=== PATIENT | male | born 1985 | race Caucasian/White ===

== ENCOUNTER 2018-08-27 18:50 | Inpatient (IN) | payer SELFPAY ==
[~2018-08-27] VITALS: Ht 175.3 cm; Wt 104.3 kg
[~2018-08-27 18:50] MED LIST: GABA-533 PO; LEVE250T55 PO; RISP2 PO
[2018-08-27] MEDS ORDERED: ONDANSETRON HCL 4 MG/2 ML VIAL IVP ONE (19:30)
[2018-08-27] MEDS ORDERED: MORPHINE SULFATE 4 MG/ML SYRINGE IVP ONE (19:30)
[2018-08-27] MEDS ORDERED: SODIUM CHLORIDE 0.9% 1,000 ML IV ONE (19:30)
[2018-08-27 19:43] LABS: BASOPHILS % (AUTO) 0.8 % (0.0-2.0); EOSINOPHILS % (AUTO) 0.9 % (1.0-6.0); HEMATOCRIT 46.1 % (41-53); HEMOGLOBIN 16.1 g/dL (13.5-17.5); LYMPHOCYTES # (AUTO) 1.3 K/uL (1.0-4.8); LYMPHOCYTES % (AUTO) 11.6 % (22.0-44.0); MEAN CORPUSCULAR HEMOGLOBIN 30.5 pg (26.0-34.0); MEAN CORPUSCULAR HGB CONC 34.9 G/dL (31.0-37.0); MEAN CORPUSCULAR VOLUME 87 fL (80-100); MONOCYTES # (AUTO) 0.8 K/uL (0.1-1.0); MONOCYTES % (AUTO) 7.7 % (2.0-9.0); NEUTROPHILS # (AUTO) 8.6 K/uL (1.8-7.7); PLATELET COUNT (AUTO) 372 K/uL (150-450); RED BLOOD CELL COUNT(AUTO) 5.29 MIL/uL (4.50-5.90); RED CELL DISTRIBUTION WIDTH 13.5 % (11.5-14.5)
[2018-08-27 19:54] LABS: ANION GAP 8 mmol/L (8-16); CALCIUM, TOTAL 8.6 mg/dL (8.8-10.5); CARBON DIOXIDE 29 mmol/L (22-29); CHLORIDE 103 mmol/L (98-107); CREATININE 1.05 mg/dL (0.60-1.30); GLOMERULAR FILTR. RATE CALC > 60 mL/min (>60); GLUCOSE,RANDOM 96 mg/dL (70-110); SODIUM SERUM 140 mmol/L (136-145); UREA NITROGEN, BLOOD 10 mg/dL (7-18)
[2018-08-27 19:57] LABS: D-DIMER 0.27 mg/L FEU (0.00-0.50)
[2018-08-27] MEDS ORDERED: LORazepam 2 MG/ML VIAL IVP ONE (20:00)
[2018-08-27 20:11] LABS: B-TYPE NATRIURETIC PEPTIDE 6 pg/mL (0-100)
[2018-08-27 20:18] LABS: ALANINE AMINOTRANSFERASE 184 U/L (12-78); ALBUMIN 4.1 g/dL (3.4-5.0); ALKALINE PHOSPHATASE 94 U/L (46-116); ASPARTATE AMINOTRANSFERASE 101 U/L (15-37); BILIRUBIN,TOTAL 0.6 mg/dL (0.1-1.0); CREATINE KINASE, TOTAL ONLY 566 U/L (39-308); TOTAL PROTEIN, SERUM 7.9 g/dL (6.4-8.2)
[2018-08-27] MEDS ORDERED: LORazepam 2 MG TABLET PO ONE (21:00)
[2018-08-27 21:40] LABS: APPEARANCE,URINE CLEAR (CLEAR); BILIRUBIN,URINE NEGATIVE (NEGATIVE); GLUCOSE, URINE (UA) NEGATIVE (NEGATIVE); KETONES,URINE NEGATIVE (NEGATIVE); LEUKOCYTE ESTERASE ,URINE NEGATIVE (NEGATIVE); NITRATE,URINE NEGATIVE (NEGATIVE); OCCULT BLOOD,URINE NEGATIVE (NEGATIVE); PROTEIN,URINE NEGATIVE (NEGATIVE); UROBILINOGEN,URINE 0.2 mg/dL (<=1.0)
[2018-08-27 21:50] LABS: AMPHET/METH SCREEN,URINE NEGATIVE (NEGATIVE); BARBITURATE SCREEN, URINE NEGATIVE (NEGATIVE); BENZODIAZEPINES SCREEN,URINE NEGATIVE (NEGATIVE); CANNABINOID SCREEN,URINE POSITIVE (NEGATIVE); COCAINE SCREEN,URINE NEGATIVE (NEGATIVE); METHADONE SCREEN, URINE NEGATIVE (NEGATIVE); OPIATE SCREEN,URINE POSITIVE (NEGATIVE); PHENCYCLIDINE SCREEN,URINE NEGATIVE (NEGATIVE)
[2018-08-28] MEDS ORDERED: ZOLPIDEM TARTRATE 10 MG TABLET PO PRN (01:00)
[2018-08-28] MEDS ORDERED: HALOPERIDOL 5 MG TABLET PO PRN (01:00)
[2018-08-28] MEDS ORDERED: ONDANSETRON HCL 4 MG TABLET PO PRN (06:45)
[2018-08-28] MEDS ORDERED: GuaiFENesin/D-METHORPHAN [SUGAR-FREE] 200-20MG/10 ML SYRUP UDCUP PO PRN (06:45)
[2018-08-28] MEDS ORDERED: PETROLATUM,WHITE 71 GM JELLY TP PRN (06:45)
[2018-08-28] MEDS ORDERED: MAG HYDROX/AL HYDROX/SIMETH ES 30 ML SUSPENSION UDCUP PO PRN (06:45)
[2018-08-28] MEDS ORDERED: NICOTINE 14 MG/24 HOUR PATCH TD PRN (06:45)
[2018-08-28] MEDS ORDERED: CloNIDine HCL 0.1 MG TABLET PO PRN (06:45)
[2018-08-28] MEDS ORDERED: IBUPROFEN 400 MG TABLET PO PRN (06:45)
[2018-08-28] MEDS ORDERED: MAGNESIUM HYDROXIDE SUSPENSION 30 ML UDCUP PO PRN (06:45)
[2018-08-28] MEDS ORDERED: ALBUTEROL SULFATE HFA 90 MCG/PUFF 8 GM INHALER IH PRN (06:45)
[2018-08-28] MEDS ORDERED: LOPERAMIDE HCL 2 MG CAPSULE PO PRN (06:45)
[2018-08-28] MEDS ORDERED: DOCUSATE SODIUM 100 MG CAPSULE PO PRN (06:45)
[2018-08-28] MEDS: GABAPENTIN 400 MG CAPSULE PO SCH ×3 (09:14→18:00)
[2018-08-28] MEDS: LevETIRAcetam 250 MG TABLET PO SCH ×2 (09:15→18:00)
[2018-08-28] MEDS: ARIPiprazole 5 MG TABLET PO SCH (13:15)
[2018-08-28 18:50] VITALS: BP 145/75
[2018-08-28] MEDS: MIRTAZAPINE 15 MG TABLET PO SCH (21:25)
[2018-08-29 05:05] VITALS: BP 116/65
[2018-08-29] MEDS: LORazepam 2 MG TABLET PO PRN (05:26)
[2018-08-29] MEDS: ARIPiprazole 5 MG TABLET PO SCH (09:54)
[2018-08-29] MEDS: GABAPENTIN 400 MG CAPSULE PO SCH ×3 (09:54→17:00)
[2018-08-29] MEDS: LevETIRAcetam 250 MG TABLET PO SCH ×2 (10:07→17:00)
[2018-08-29] MEDS ORDERED: LORazepam 2 MG/ML VIAL IM ONE (17:30)
[2018-08-29] MEDS ORDERED: HALOPERIDOL LACTATE 5 MG/ML VIAL IM ONE (17:30)
[2018-08-29] MEDS ORDERED: DiphenhydrAMINE HCL 50 MG/ML VIAL IM ONE (17:30)
[2018-08-29] MEDS: MIRTAZAPINE 15 MG TABLET PO SCH (21:00)
[2018-08-30] MEDS: GABAPENTIN 400 MG CAPSULE PO SCH ×3 (08:44→17:07)
[2018-08-30] MEDS: ARIPiprazole 5 MG TABLET PO SCH (08:44)
[2018-08-30] MEDS: LevETIRAcetam 250 MG TABLET PO SCH ×2 (08:45→17:08)
[2018-08-30] MEDS: MIRTAZAPINE 15 MG TABLET PO SCH (20:35)
[2018-08-31] MEDS: GABAPENTIN 400 MG CAPSULE PO SCH ×3 (10:08→16:32)
[2018-08-31] MEDS: LevETIRAcetam 250 MG TABLET PO SCH ×2 (10:08→16:32)
[2018-08-31] MEDS: ARIPiprazole 5 MG TABLET PO SCH (10:09)
[2018-08-31] MEDS: LORazepam 2 MG TABLET PO PRN ×2 (16:32→22:47)
[2018-08-31 18:00] VITALS: BP 129/75
[2018-08-31] MEDS: MIRTAZAPINE 15 MG TABLET PO SCH (20:40)
[2018-09-01] MEDS: ARIPiprazole 5 MG TABLET PO SCH (10:17)
[2018-09-01] MEDS: LevETIRAcetam 250 MG TABLET PO SCH (10:17)
[2018-09-01] MEDS: GABAPENTIN 400 MG CAPSULE PO SCH ×2 (10:17→13:56)
[2018-09-01] MEDS ORDERED: ARIP5TAB8 PO (13:18)
[2018-09-01] MEDS ORDERED: MIRT15 PO (13:19)
== END 2018-09-01 14:00 | disposition home or self-care (01) | DRG 885 ==
LOC: EMS 18:52 → 3EI 08-28 01:32
PROVIDERS: ADMIT Psychiatry & Neurology Psychiatry; ATTEND Psychiatry & Neurology Psychiatry
DX: F33.2 Major depressive disorder, recurrent severe without psychotic features (principal); R45.851 Suicidal ideations; F41.9 Anxiety disorder, unspecified; R45.87 Impulsiveness; G40.909 Epilepsy, unspecified, not intractable, without status epilepticus; G47.00 Insomnia, unspecified; F17.200 Nicotine dependence, unspecified, uncomplicated; F10.10 Alcohol abuse, uncomplicated; F12.90 Cannabis use, unspecified, uncomplicated; Z90.49 Acquired absence of other specified parts of digestive tract; Z59.0 Homelessness; Z88.8 Allergy status to other drugs, medicaments and biological substances; Z91.5 Personal history of self-harm
CPT/HCPCS: 74176; 85379; 93005; 96361; 96374; 96375; G0480; J1630; J2060; J2270; J2405

== ENCOUNTER 2019-07-10 21:42 | Inpatient (IN) | payer MEDICAID, OTHER ==
[~2019-07-10] VITALS: Ht 175.3 cm; Wt 80.3 kg
[2019-07-10 22:32] LABS: BASOPHILS % (AUTO) 1.1 % (0.0-2.0); EOSINOPHILS % (AUTO) 1.9 % (1.0-6.0); HEMATOCRIT 45.6 % (41-53); HEMOGLOBIN 15.4 g/dL (13.5-17.5); LYMPHOCYTES # (AUTO) 2.4 K/uL (1.0-4.8); LYMPHOCYTES % (AUTO) 37.2 % (22.0-44.0); MEAN CORPUSCULAR HEMOGLOBIN 31.5 pg (26.0-34.0); MEAN CORPUSCULAR HGB CONC 33.8 G/dL (31.0-37.0); MEAN CORPUSCULAR VOLUME 93 fL (80-100); MONOCYTES # (AUTO) 0.7 K/uL (0.1-1.0); MONOCYTES % (AUTO) 10.3 % (2.0-9.0); NEUTROPHILS # (AUTO) 3.1 K/uL (1.8-7.7); NEUTROPHILS % (AUTO) 49.5 % (40.0-70.0); PLATELET COUNT (AUTO) 285 K/uL (150-450); RED BLOOD CELL COUNT(AUTO) 4.89 MIL/uL (4.50-5.90); RED CELL DISTRIBUTION WIDTH 14.5 % (11.5-14.5)
[2019-07-10 22:42] LABS: ANION GAP 11 mmol/L (8-16); CARBON DIOXIDE 29 mmol/L (22-29); CHLORIDE 103 mmol/L (98-107); CREATININE 1.27 mg/dL (0.60-1.30); GLOMERULAR FILTR. RATE CALC > 60 mL/min (>60); GLUCOSE,RANDOM 114 mg/dL (70-110); POTASSIUM 3.5 mmol/L (3.5-5.1); SODIUM SERUM 143 mmol/L (136-145); UREA NITROGEN, BLOOD 18 mg/dL (7-18)
[2019-07-10 22:44] LABS: ALANINE AMINOTRANSFERASE 57 U/L (12-78); ALBUMIN 4.1 g/dL (3.4-5.0); ALKALINE PHOSPHATASE 85 U/L (46-116); ASPARTATE AMINOTRANSFERASE 49 U/L (15-37); BILIRUBIN,TOTAL 0.5 mg/dL (0.1-1.0); TOTAL PROTEIN, SERUM 7.3 g/dL (6.4-8.2)
[2019-07-10 23:34] LABS: AMPHET/METH SCREEN,URINE POSITIVE (NEGATIVE); BARBITURATE SCREEN, URINE NEGATIVE (NEGATIVE); BENZODIAZEPINES SCREEN,URINE NEGATIVE (NEGATIVE); CANNABINOID SCREEN,URINE POSITIVE (NEGATIVE); COCAINE SCREEN,URINE NEGATIVE (NEGATIVE); METHADONE SCREEN, URINE NEGATIVE (NEGATIVE); OPIATE SCREEN,URINE NEGATIVE (NEGATIVE)
[2019-07-10 23:35] LABS: PHENCYCLIDINE SCREEN,URINE NEGATIVE (NEGATIVE)
[2019-07-11 02:20] VITALS: BP 106/95
[2019-07-11] MEDS: ZOLPIDEM TARTRATE 10 MG TABLET PO PRN ×2 (02:45→20:51)
[2019-07-11] MEDS: LORazepam 2 MG TABLET PO PRN ×2 (02:45→17:06)
[2019-07-11] MEDS: ARIPiprazole 5 MG TABLET PO SCH (12:14)
[2019-07-11] MEDS: GABAPENTIN 400 MG CAPSULE PO SCH ×2 (12:14→17:06)
[2019-07-11] MEDS ORDERED: LOPERAMIDE HCL 2 MG CAPSULE PO PRN (12:30)
[2019-07-11] MEDS ORDERED: MAGNESIUM HYDROXIDE SUSPENSION 30 ML UDCUP PO PRN (12:30)
[2019-07-11] MEDS ORDERED: ALBUTEROL SULFATE HFA 90 MCG/PUFF 8 GM INHALER IH PRN (12:30)
[2019-07-11] MEDS ORDERED: GuaiFENesin/D-METHORPHAN [SUGAR-FREE] 200-20MG/10 ML SYRUP UDCUP PO PRN (12:30)
[2019-07-11] MEDS ORDERED: CloNIDine HCL 0.1 MG TABLET PO PRN (12:30)
[2019-07-11] MEDS ORDERED: MAG HYDROX/AL HYDROX/SIMETH ES 30 ML SUSPENSION UDCUP PO PRN (12:30)
[2019-07-11] MEDS ORDERED: DOCUSATE SODIUM 100 MG CAPSULE PO PRN (12:30)
[2019-07-11] MEDS ORDERED: PETROLATUM,WHITE 28 GM JELLY TP PRN (12:30)
[2019-07-11] MEDS ORDERED: IBUPROFEN 400 MG TABLET PO PRN (12:30)
[2019-07-11] MEDS ORDERED: ONDANSETRON HCL 4 MG TABLET PO PRN (12:30)
[2019-07-11] MEDS: LevETIRAcetam 250 MG TABLET PO SCH (17:06)
[2019-07-11] MEDS: MIRTAZAPINE 15 MG TABLET PO SCH (20:51)
[2019-07-12 00:15] VITALS: BP 104/69
[2019-07-12] MEDS: LevETIRAcetam 250 MG TABLET PO SCH ×2 (09:44→16:22)
[2019-07-12] MEDS: ARIPiprazole 5 MG TABLET PO SCH (09:44)
[2019-07-12] MEDS: GABAPENTIN 400 MG CAPSULE PO SCH ×3 (09:44→16:22)
[2019-07-12 10:05] LABS: ALANINE AMINOTRANSFERASE 53 U/L (12-78); ALBUMIN 3.8 g/dL (3.4-5.0); ALKALINE PHOSPHATASE 76 U/L (46-116); ANION GAP 5 mmol/L (8-16); ASPARTATE AMINOTRANSFERASE 51 U/L (15-37); BILIRUBIN,TOTAL 0.5 mg/dL (0.1-1.0); CALCIUM, TOTAL 9.2 mg/dL (8.8-10.5); CARBON DIOXIDE 29 mmol/L (22-29); CHLORIDE 104 mmol/L (98-107); CREATININE 0.91 mg/dL (0.60-1.30); GLOMERULAR FILTR. RATE CALC > 60 mL/min (>60); GLUCOSE,RANDOM 74 mg/dL (70-110); SODIUM SERUM 138 mmol/L (136-145); THYROID STIMULATING HORMONE 0.32 uIU/mL (0.36-3.74); TOTAL PROTEIN, SERUM 7.2 g/dL (6.4-8.2); UREA NITROGEN, BLOOD 17 mg/dL (7-18)
[2019-07-12 12:48] LABS: CHOL/HDL RATIO 3.3 (4.2-7.3); CHOLESTEROL 160 mg/dL (131-200); HDL CHOLESTEROL 49 mg/dL (40-60); LDL CHOL (CALC.) 92 mg/dL (0-130); TRIGLYCERIDES 97 mg/dL (15-150)
[2019-07-12] MEDS: LORazepam 2 MG TABLET PO PRN ×2 (16:23→20:42)
[2019-07-12] MEDS: ZOLPIDEM TARTRATE 10 MG TABLET PO PRN (20:42)
[2019-07-12] MEDS: MIRTAZAPINE 15 MG TABLET PO SCH (20:42)
[2019-07-13] MEDS: GABAPENTIN 400 MG CAPSULE PO SCH ×3 (08:45→17:30)
[2019-07-13] MEDS: ARIPiprazole 10 MG TABLET PO SCH (08:45)
[2019-07-13] MEDS: LevETIRAcetam 250 MG TABLET PO SCH ×2 (08:45→17:30)
[2019-07-13] MEDS ORDERED: LEVE250T55 PO (13:41)
[2019-07-13] MEDS ORDERED: GABA-533 PO (13:41)
[2019-07-13] MEDS ORDERED: MIRT15 PO (13:41)
[2019-07-13] MEDS ORDERED: ARIP10TA8 PO (13:42)
[2019-07-13 14:50] VITALS: BP 113/67
[2019-07-13] MEDS: HALOPERIDOL 5 MG TABLET PO PRN (14:50)
[2019-07-13] MEDS: LORazepam 2 MG TABLET PO PRN (14:50)
[2019-07-13 16:07] VITALS: BP 110/67
[2019-07-13] MEDS: NICOTINE 14 MG/24 HOUR PATCH TD PRN (17:30)
[2019-07-13] MEDS: MIRTAZAPINE 15 MG TABLET PO SCH (20:43)
[2019-07-14] MEDS: ARIPiprazole 10 MG TABLET PO SCH (09:02)
[2019-07-14] MEDS: GABAPENTIN 400 MG CAPSULE PO SCH ×3 (09:02→16:55)
[2019-07-14] MEDS: LevETIRAcetam 250 MG TABLET PO SCH ×2 (09:03→16:55)
[2019-07-14 10:08] VITALS: BP 106/62
[2019-07-14] MEDS: LORazepam 2 MG TABLET PO PRN ×2 (11:15→16:56)
[2019-07-14 16:15] VITALS: BP 108/64
[2019-07-14] MEDS: HALOPERIDOL 5 MG TABLET PO PRN (16:56)
[2019-07-14] MEDS: ZOLPIDEM TARTRATE 10 MG TABLET PO PRN (20:34)
[2019-07-14] MEDS: MIRTAZAPINE 15 MG TABLET PO SCH (20:34)
[2019-07-15 06:53] VITALS: BP 102/62
[2019-07-15] MEDS: GABAPENTIN 400 MG CAPSULE PO SCH ×3 (09:00→17:06)
[2019-07-15] MEDS: ARIPiprazole 10 MG TABLET PO SCH (09:01)
[2019-07-15] MEDS: LevETIRAcetam 250 MG TABLET PO SCH ×2 (09:01→17:06)
[2019-07-15] MEDS: LORazepam 2 MG TABLET PO PRN ×3 (12:23→21:09)
[2019-07-15 16:37] VITALS: BP 110/66
[2019-07-15] MEDS: HALOPERIDOL 5 MG TABLET PO PRN (17:06)
[2019-07-15] MEDS: ZOLPIDEM TARTRATE 10 MG TABLET PO PRN (20:37)
[2019-07-15] MEDS: MIRTAZAPINE 15 MG TABLET PO SCH (20:37)
[2019-07-16 06:44] VITALS: BP 113/72
[2019-07-16] MEDS: LevETIRAcetam 250 MG TABLET PO SCH ×2 (08:37→16:52)
[2019-07-16] MEDS: ARIPiprazole 10 MG TABLET PO SCH (08:38)
[2019-07-16] MEDS: GABAPENTIN 400 MG CAPSULE PO SCH ×3 (08:38→16:52)
[2019-07-16] MEDS: LORazepam 2 MG TABLET PO PRN ×2 (10:57→16:52)
[2019-07-16] MEDS: HALOPERIDOL 5 MG TABLET PO PRN ×2 (11:00→16:52)
[2019-07-16] MEDS: NICOTINE 14 MG/24 HOUR PATCH TD PRN (11:21)
[2019-07-16 17:06] VITALS: BP 115/67
[2019-07-16] MEDS: MIRTAZAPINE 15 MG TABLET PO SCH ×2 (20:41→20:47)
[2019-07-17 01:53] VITALS: BP 109/73
[2019-07-17] MEDS: ZOLPIDEM TARTRATE 10 MG TABLET PO PRN ×2 (01:55→20:32)
[2019-07-17] MEDS: LORazepam 2 MG TABLET PO PRN ×3 (01:55→16:34)
[2019-07-17] MEDS: GABAPENTIN 400 MG CAPSULE PO SCH ×3 (09:18→16:34)
[2019-07-17] MEDS: ARIPiprazole 10 MG TABLET PO SCH (09:18)
[2019-07-17] MEDS: LevETIRAcetam 250 MG TABLET PO SCH ×2 (09:19→16:34)
[2019-07-17] MEDS: NICOTINE 14 MG/24 HOUR PATCH TD PRN (10:28)
[2019-07-17] MEDS: HALOPERIDOL 5 MG TABLET PO PRN ×2 (10:44→16:34)
[2019-07-17 16:06] VITALS: BP 107/70
[2019-07-17] MEDS: MIRTAZAPINE 15 MG TABLET PO SCH (20:32)
[2019-07-18 06:50] VITALS: BP 116/73
[2019-07-18] MEDS: GABAPENTIN 400 MG CAPSULE PO SCH ×3 (08:28→16:16)
[2019-07-18] MEDS: ARIPiprazole 10 MG TABLET PO SCH (08:29)
[2019-07-18] MEDS: LevETIRAcetam 250 MG TABLET PO SCH (08:29)
[2019-07-18] MEDS: LORazepam 2 MG TABLET PO PRN ×2 (10:16→18:49)
[2019-07-18] MEDS ORDERED: LevETIRAcetam 500 MG TABLET PO SCH (17:00)
[2019-07-18 18:49] VITALS: BP 109/71
[2019-07-18] MEDS: HALOPERIDOL 5 MG TABLET PO PRN (18:49)
[2019-07-18] MEDS: MIRTAZAPINE 15 MG TABLET PO SCH (20:23)
[2019-07-18] MEDS ORDERED: CLON0.1T PO (20:51)
[2019-07-19] MEDS ORDERED: KETOROLAC TROMETHAMINE 30 MG/ML VIAL IVP PRN (09:00)
[2019-07-19] MEDS ORDERED: GABAPENTIN 400 MG CAPSULE PO SCH (09:00)
[2019-07-19] MEDS ORDERED: LevETIRAcetam 250 MG TABLET PO SCH (09:00)
[2019-07-19] MEDS ORDERED: PROMETHAZINE HCL 25 MG TABLET PO PRN (09:00)
[2019-07-19] MEDS ORDERED: DEXTROSE 5%-0.45% SODIUM CHL 1,000 ML IV SCH (09:00)
[2019-07-19] MEDS ORDERED: MAGNESIUM HYDROXIDE SUSPENSION 30 ML UDCUP PO PRN (09:00)
[2019-07-19] MEDS ORDERED: BISACODYL 10 MG RECTAL RECTAL SUPPOSITORY PR PRN (09:00)
[2019-07-19] MEDS ORDERED: IPRATROPIUM BROMIDE 0.5 MG/2.5 ML NEB SOLUTION NEB PRN (09:00)
[2019-07-19] MEDS ORDERED: CloNIDine HCL 0.1 MG TABLET PO PRN (09:00)
[2019-07-19] MEDS ORDERED: CIPROFLOXACIN 400 MG/D5% WATER 200 ML IV SCH (09:00)
[2019-07-19] MEDS ORDERED: DOCUSATE SODIUM 100 MG CAPSULE PO SCH (09:00)
[2019-07-19] MEDS ORDERED: ZOLPIDEM TARTRATE 5 MG TABLET PO PRN (09:00)
[2019-07-19] MEDS ORDERED: ARIPiprazole 10 MG TABLET PO SCH (09:00)
[2019-07-19] MEDS ORDERED: ALBUTEROL SULFATE 2.5 MG/0.5 ML NEB SOLUTION NEB PRN (09:00)
[2019-07-19] MEDS ORDERED: MetroNIDAZOLE 500 MG/NACL 100 ML IV SCH (09:00)
[2019-07-19] MEDS ORDERED: HEPARIN SODIUM,PORCINE 5,000 UNITS/ML VIAL SQ SCH (16:00)
[2019-07-19] MEDS ORDERED: MIRTAZAPINE 15 MG TABLET PO SCH (21:00)
[2019-07-20] MEDS ORDERED: CIPR-278 PO (14:44)
[2019-07-20] MEDS ORDERED: METR500 PO (14:44)
== END 2019-07-19 02:00 | disposition short-term general hospital (02) | DRG 750 ==
LOC: EMS 21:43 → B3A 23:30
PROVIDERS: ADMIT Psychiatry & Neurology Psychiatry; ATTEND Psychiatry & Neurology Psychiatry
DX: F25.1 Schizoaffective disorder, depressive type (principal); R45.851 Suicidal ideations; G40.909 Epilepsy, unspecified, not intractable, without status epilepticus; F41.9 Anxiety disorder, unspecified; B18.2 Chronic viral hepatitis C; F15.90 Other stimulant use, unspecified, uncomplicated; E05.90 Thyrotoxicosis, unspecified without thyrotoxic crisis or storm; F11.90 Opioid use, unspecified, uncomplicated; Z91.14 Patient's other noncompliance with medication regimen; Z71.51 Drug abuse counseling and surveillance of drug abuser; Z88.8 Allergy status to other drugs, medicaments and biological substances; Z79.899 Other long term (current) drug therapy; Z59.0 Homelessness; F19.90 Other psychoactive substance use, unspecified, uncomplicated
CPT/HCPCS: 84443; 99406; G0480